=== PATIENT | female | born 1995 | race Hispanic/Latino ===

== ENCOUNTER → 2018-12-09 | Outpatient (CLI) | payer BC ==
--- NOTE | 2018-12-09 17:35 | Diagnostic Imaging Report ---
EXAM: US ABDOMEN COMPLETE INDICATION: Abnormal LFTs. COMPARISON: None TECHNIQUE: Transverse and longitudinal kapoor scale and color doppler sonographic images of the upper abdomen were obtained. FINDINGS: LIVER 16.5 cm in the right midclavicular line. Increased echogenicity of the liver with normal contour, no masses. SPLEEN 10.4 cm in maximum diameter. Normal echogenicity, no masses. GALLBLADDER No gallbladder wall thickening, distension, stone, or pericholecystic fluid. Negative reported sonographic Garcia's sign. BILE DUCTS No intra nor extra-hepatic biliary dilation. Common bile duct measures 0.3 cm PANCREAS: Visualized portions are normal. RIGHT KIDNEY: 10.8 cm Echogenicity: Normal Collecting System: No hydronephrosis Stones: None Cyst/Mass: None LEFT KIDNEY: 10.7 cm Echogenicity: Normal Collecting System: No hydronephrosis Stones: None Cyst/Mass: None VESSELS: Aorta: Visualized portions are within normal size limits Inferior Vena Cava: Visualized portions are normal Main Portal Vein: 0.6 cm, normal size with hepatopetal flow. FREE FLUID: None IMPRESSION: Hepatomegaly with hepatic steatosis. Signed by: Dr. Brent Hui MD on 12/09/2018 5:32 PM
== END ==
LOC: US 14:19
PROVIDERS: ATTEND Internal Medicine
DX: R74.8 Abnormal levels of other serum enzymes (principal)
CPT/HCPCS: 76700